=== PATIENT | female | born 1950 | race Caucasian/White ===

== ENCOUNTER 2020-03-03 08:08 | Inpatient (IN) ==
--- NOTE | 2020-02-16 14:31 | PAT Medication Instructions ---
Medication Instructions Date of Service February 16, 2020 Home Medications Bifidobacterium infantis [Align] 4 mg PO QAM ascorbic acid (vitamin C) [Vitamin C] 1,000 mg PO QAM calcium carbonate [Calcium 600] 600 mg PO QAM cholecalciferol (vitamin D3) [Vitamin D3] 25 mcg PO QAM cyanocobalamin (vitamin B-12) 2,500 mcg PO QAM loratadine [Claritin] 10 mg PO QAM multivit [id number] 186 [Hair, Skin and Nails Advanced] 1 tab PO TID multivitamin 1 tab PO QAM simvastatin 20 mg PO HS sumatriptan succinate 100 mg PO UD PRN triamcinolone acetonide [Nasacort] 2 spray INTRANASAL QAM DO NOT take the morning of surgery Bifidobacterium infantis [Align] 4 mg PO QAM ascorbic acid (vitamin C) [Vitamin C] 1,000 mg PO QAM calcium carbonate [Calcium 600] 600 mg PO QAM cholecalciferol (vitamin D3) [Vitamin D3] 25 mcg PO QAM cyanocobalamin (vitamin B-12) 2,500 mcg PO QAM loratadine [Claritin] 10 mg PO QAM multivit [id number] 186 [Hair, Skin and Nails Advanced] 1 tab PO TID multivitamin 1 tab PO QAM Take morning of surgery With a small sip of water, OTHERWISE NOTHING TO EAT OR DRINK AFTER MIDNIGHT: sumatriptan succinate 100 mg PO UD PRN (if needed) triamcinolone acetonide [Nasacort] 2 spray INTRANASAL QAM Take evening before surgery multivit [id number] 186 [Hair, Skin and Nails Advanced] 1 tab PO TID simvastatin 20 mg PO HS sumatriptan succinate 100 mg PO UD PRN (if needed) Other Notes If you have any questions please call us at [phone] or [phone] or [phone] or [phone]
--- NOTE | 2020-02-20 11:46 | Anesthesiology Consultation ---
Date of Service February 20, 2020 Assessment & Plan (1) Encounter for pre-operative examination: Per PAT assessment on 02/19: Travel screen- Travelled to [place], [place] to visit sister. Returned 02/18/20. DOS is more than 2 weeks after travel. + Mask + social distancing in public. No known COVID-19 positive contacts. No current COVID-19 related symptoms. Patient had COVID testing done 02/07 (prior to having thyroid biopsy) which was negative. Patient states she has not been told about having preop COVID testing arranged. Michaela at surgeon's office aware and states she will contact the patient for arranging. Awaiting results. Chart Review Chart Review: Acceptable Risk for Surgery (pending COVID test) and Patient seen in Pre Admission Testing Teaching & Discussion Pre-Anesthesia Teaching/Discussion Notes: Instructed NPO after midnight before surgery,except medications with 15 cc of water. Medication instructions provided according to the PAT guidelines. History Surgery Operation Date: 03/03/20 11:55 Proposed Procedures p Left Sacroiliac Joint Fusion - Patricio Snyder DO Height/Weight Height: 5 ft 1 in Weight: 60.3 kg Allergies Allergy/AdvReac Type Severity Reaction Status Date / Time oxcarbazepine Allergy Severe Hives Verified 02/12/20 08:13 rofecoxib [From Vioxx] Allergy Unknown Itching Verified 02/20/20 11:43 budesonide AdvReac Unknown Weight Verified 02/20/20 11:43 loss, thrush, fatigue hydrocodone AdvReac Unknown Vomiting Verified 02/12/20 08:14 tramadol AdvReac Unknown Vomiting Verified 02/12/20 08:14 Medications Home Medications Medication Instructions Recorded Confirmed Last Taken Bifidobacterium infantis [Align] 4 mg PO QAM 02/12/20 02/12/20 Unknown ascorbic acid (vitamin C) [Vitamin 1,000 mg PO QAM 02/12/20 02/12/20 Unknown C] calcium carbonate [Calcium 600] 600 mg PO QAM 02/12/20 02/12/20 Unknown cholecalciferol (vitamin D3) 25 mcg PO QAM 02/12/20 02/12/20 Unknown [Vitamin D3] cyanocobalamin (vitamin B-12) 2,500 mcg PO QAM 02/12/20 02/12/20 Unknown loratadine [Claritin] 10 mg PO QAM 02/12/20 02/12/20 Unknown multivit [id number] 186 1 tab PO TID 02/12/20 02/12/20 Unknown [Hair, Skin and Nails Advanced] multivitamin 1 tab PO QAM 02/12/20 02/12/20 Unknown simvastatin 20 mg PO HS 02/12/20 02/12/20 Unknown sumatriptan succinate 100 mg PO UD PRN 02/12/20 02/12/20 Unknown triamcinolone acetonide [Nasacort] 2 spray INTRANASAL QAM 02/12/20 02/12/20 Unknown Past Medical History Medical History CC (collagenous colitis) follows with [facility] Chronic back pain LLE radiculopathy GERD (gastroesophageal reflux disease) controlled Hyperlipidemia Migraine hx Thyroid nodule under surveillance with ultrasound/biopsy Exercise / Class Metabolic Activity II 4-5 Yardwork/Stairs/Walk up hill Past Family History Family History Sister Family history of diabetes mellitus Past Surgical History Surgical History H/O foot surgery LEFT LIGAMENT REPAIR History of carpal tunnel release R/L History of colonoscopy History of esophagogastroduodenoscopy (EGD) Past Anesthesia History No Hx of Anesthesia Complications (except PONV x1 episode) and No Family Hx of Anesthesia Complications History of PONV No Hx of Motion Sickness and History of PONV (with [facility]) Social History Smoking Status: Never smoker Do You Dip or Chew Tobacco: No Hx Alcohol Use: No Hx Substance Use: No Review of Systems Controlled reflux. Patient denies chest pain, shortness of breath, dyspnea on exertion, cough, wheezing, palpitations. Physical Exam Vital Signs VITALS BP 131/76 P 74 TEMP 98.6 SP02 98%RA RESP 16 PHYSICAL Full neck and c-spine range of motion. Full TMJ range of motion. TMD 3 finger breaths Mallampati Score 3 Dentition: intact, + crowns on sides Lungs: clear throughout to auscultation Cardiac: regular rate and rhythm, no murmurs noted Spine: normal Carotid arteries: negative bruit Extremities: no edema Testing Laboratory Results 02/20/20 12:01 02/20/20 12:01 PT 10.8 Seconds (9.0-12.0) 02/20/20 12: INR 1.0 (0.9-1.1) 02/20/20 12: APTT 29.7 Seconds (21.0-31.0) 02/20/20 12:01 Urine Color Dark Yellow 02/20/20 Unknown Urine Appearance Clear (Clear) 02/20/20 Unknown Urine pH 6.5 (4.5-7.5) 02/20/20 Unknown Ur Specific [place] 1.020 (1.000-1.030) 02/20/20 Unknown Urine Protein Negative (Negative) 02/20/20 Unknown Urine Glucose (UA) Negative (Negative) 02/20/20 Unknown Urine Ketones Negative (Negative) 02/20/20 Unknown Urine Nitrite Negative (Negative) 02/20/20 Unknown Ur Leukocyte Esterase Negative (Negative) 02/20/20 Unknown Blood Type A Positive 02/20/20 12: Antibody Screen NEGATIVE 02/20/20 12:01 Electrocardiogram Date: 02/20/20 NSR at 64bpm. LAD. Low voltage QRS. Possible inferior infarct, age undetermined. unconfirmed report. Chest X-Ray Date: 02/20/20 FINDINGS: The lungs are clear. The heart is normal in size. No pleural effusions. No pneumothorax. Mild biapical pleural calcifications. The lungs are hyperexpanded with mild apical predominant emphysematous changes. Mild degenerative changes within the thoracic spine. IMPRESSION: No acute process within the chest. Mild emphysema.
[2020-02-20 12:19] LABS: Basophils # (auto) 0.06 K/uL (0-0.2); Eosinophils # (auto) 0.04 K/uL (0-0.5); Eosinophils % (auto) 0.7 %; Hematocrit (blood only) 44.4 % (37-47); Hemoglobin 14.8 g/dL (12.0-16.0); Immature Granulocytes # (auto) 0.02 K/uL (0.00-0.02); Immature Granulocytes % (auto) 0.3 %; Lymphocytes % (auto) 27.2 %; Mean Corpuscular Hemoglobin 30.8 pg (25-34); Mean Corpuscular Hgb Conc 33.3 g/dL (32-36); Mean Corpuscular Volume 92.3 fL (80-100); Mean Platelet Volume 9.8 fL (7.4-10.4); Monocytes % (auto) 10.2 %; Neutrophils # (auto) 3.57 K/uL (1.4-6.5); Neutrophils % (auto) 60.6 %; Platelet Count 279 K/uL (130-400); RDW Coefficient of Variation 13.3 % (11.5-14.5); RDW Standard Deviation 45.1 fL (36.4-46.3); Red Blood Count 4.81 M/uL (4.2-5.4); White Blood Count 5.89 K/uL (4.8-10.8)
[2020-02-20 12:22] LABS: Appearance Urine Clear (Clear); Bilirubin Urine Negative (Negative); Blood Urine Negative (Negative); Color Urine Dark Yellow; Glucose Urine UA Negative (Negative); Ketones Urine Negative (Negative); Leukocyte Esterase Urine Negative (Negative); Nitrite Urine Negative (Negative); Protein Urine Negative (Negative); Urobilinogen Urine Negative (Negative); pH Urine 6.5 (4.5-7.5)
[2020-02-20 12:29] LABS: Partial Thromboplastin Ratio 1.1; Partial Thromboplastin Time 29.7 Seconds (21.0-31.0); Prothrombin Time 10.8 Seconds (9.0-12.0)
[2020-02-20 12:30] LABS: BUN Creatinine Ratio 31.1 (10-20); Calcium 9.8 mg/dl (8.5-10.1); Creatinine Clr Calc Pharmacy 53.1 ml/min; Est GFR (African American) 84.7; Est GFR (Non-African American) 73.1; Potassium 4.3 mmol/L (3.5-5.1)
--- NOTE | 2020-02-20 12:37 | XRay Report ---
XR chest Pre-admission PA/Lat HISTORY: Preop. COMPARISON: None. FINDINGS: The lungs are clear. The heart is normal in size. No pleural effusions. No pneumothorax. Mi ld biapical pleural calcifications. The lungs are hyperexpanded with mild apical predominant emphysem atous changes. Mild degenerative changes within the thoracic spine. IMPRESSION: 1. No acute process within the chest. 2. Mild emphysema. ACT 112: Negative or not required by law. Electronically signed by: Zac Frances M.D. 02/20/2020 12:36 PM
--- NOTE | 2020-02-21 07:01 | Electrocardiogram Report ---
Test Reason : Blood Pressure : / mmHG Vent. Rate : 064 BPM Atrial Rate : 064 BPM P-R Int : 162 ms QRS Dur : 080 ms QT Int : 396 ms P-R-T Axes : 078 -66 080 degrees QTc Int : 408 ms Normal sinus rhythm Left axis deviation Low voltage QRS Possible Inferior infarct , age undetermined Abnormal ECG No previous ECGs available Confirmed by Darian Myers ([id number]) on 02/20/2020 10:00:43 PM Referred By: Patricio Snyder Confirmed By:Darian Myers
[~2020-03-03 08:08] MED LIST: ACETAMINOPHEN 500 MG TAB PO SCH; CEFAZOLIN 1000MG 1,000 MG/7.5 ML SYR IV SCH; GABAPENTIN 300 MG CAP PO SCH; LR 15ML/HR IV SCH
--- NOTE | 2020-03-03 09:41 | History & Physical Bridge Note ---
Date of Service March 03, 2020 History & Physical Bridge Note I have examined the patient, reviewed the History & Physical and in the interval since the performance of the History & Physical I have noted the following changes of clinical significance: no changes noted
--- NOTE | 2020-03-03 09:42 | History & Physical Report ---
Date of Service March 03, 2020 Assessment & Plan (1) Sacroiliitis: Left sacroiliac joint fusion Present on Admission?: Yes History of Present Illness Chief Complaint: Sacroiliitis Primary Care Provider: Patricio Soto This is a 69-year-old female that presents with chronic persistent left SI joint pain is here for surgical intervention. Allergies Allergy/AdvReac Type Severity Reaction Status Date / Time oxcarbazepine Allergy Severe Hives Verified 03/03/20 08:25 rofecoxib [From Vioxx] Allergy Unknown Itching Verified 03/03/20 08:25 budesonide AdvReac Unknown Weight Verified 03/03/20 08:25 loss, thrush, fatigue hydrocodone AdvReac Unknown Vomiting Verified 03/03/20 08:25 tramadol AdvReac Unknown Vomiting Verified 03/03/20 08:25 Home Medications Home Medications Medication Instructions Recorded Confirmed Type Bifidobacterium infantis [Align] 4 mg PO QAM 02/12/20 03/03/20 History ascorbic acid (vitamin C) [Vitamin 1,000 mg PO QAM 02/12/20 03/03/20 History C] calcium carbonate [Calcium 600] 600 mg PO QAM 02/12/20 03/03/20 History cholecalciferol (vitamin D3) 25 mcg PO QAM 02/12/20 03/03/20 History [Vitamin D3] cyanocobalamin (vitamin B-12) 2,500 mcg PO QAM 02/12/20 03/03/20 History loratadine [Claritin] 10 mg PO QAM 02/12/20 03/03/20 History multivit [id number]-herb 186 1 tab PO TID 02/12/20 03/03/20 History [Hair, Skin and Nails Advanced] multivitamin 1 tab PO QAM 02/12/20 03/03/20 History simvastatin 20 mg PO HS 02/12/20 03/03/20 History sumatriptan succinate 100 mg PO UD PRN 02/12/20 03/03/20 History triamcinolone acetonide [Nasacort] 2 spray INTRANASAL QAM 02/12/20 03/03/20 History Past Med/Surg History Medical History CC (collagenous colitis) follows [facility] Chronic back pain LLE radiculopathy GERD (gastroesophageal reflux disease) controlled Hyperlipidemia Migraine hx Thyroid nodule under surveillance with ultrasound/biopsy Surgical History H/O foot surgery LEFT LIGAMENT REPAIR History of carpal tunnel release R/L History of colonoscopy History of esophagogastroduodenoscopy (EGD) Family History Sister Family history of diabetes mellitus Social History Preferred Language: [place] Communication Ability: Effective Veneer Layer Required: No Beliefs That Will Affect Care: None Current Living Situation: Spouse Other Information That Helps Us Care for You: No Feels Safe at Home: Yes Safety Concerns: Feels Safe At This Time Smoking Status: Never smoker Do You Dip or Chew Tobacco: No ; Second Hand Exposure: No ; Hx Alcohol Use: No Hx Substance Use: No Physical Exam Physical Exam: Patient is alert and oriented neurologically intact. Heart regular rate and rhythm. Lungs clear to auscultation. Results & Data Vital Signs (Past 12 Hours) Vital Signs Temp Pulse Resp BP Pulse Ox 03/03/20 08:29 36.6 C 70 18 160/82 H 95
[2020-03-03] MEDS ORDERED: SCOPOLAMINE 1.5 MG TDSY TD ONE (09:44)
[2020-03-03] MEDS ORDERED: ONDANSETRON INJ 2 MG/ML 2 ML VIAL IV PRN (09:44)
[2020-03-03] MEDS ORDERED: ePHEDrine sulfate 50 MG/ML AMP IV PRN (09:44)
[2020-03-03] MEDS ORDERED: ATROPINE SULFATE 0.1 MG/ML 10ML SYR IV PRN (09:44)
[2020-03-03] MEDS ORDERED: SCOPOLAMINE 1.5 MG TDSY TD SCH (09:45)
[2020-03-03] MEDS ORDERED: BACITRACIN INJ 50,000 UNIT VIAL ONE (09:46)
[2020-03-03] MEDS ORDERED: BUPIVACAINE/EPINEPHRINE 0.25% 1:200,000 30 ML VIAL ONE (09:46)
[2020-03-03] MEDS ORDERED: ONDANSETRON INJ 2 MG/ML 2 ML VIAL ONE (09:50)
[2020-03-03] MEDS ORDERED: PROPOFOL IV EMULSION 10 MG/ML 20 ML VIAL IV ONE (09:50)
[2020-03-03] MEDS ORDERED: MIDAZOLAM HCL 1 MG/ML 2ML VIAL ONE (09:50)
[2020-03-03] MEDS ORDERED: fentaNYL citrate 100 MCG/2 ML VIAL ONE (09:50)
[2020-03-03] MEDS ORDERED: ROCURONIUM BROMIDE 10 MG/ML 5 ML VIAL IV ONE ×2 (09:50→12:10)
[2020-03-03] MEDS ORDERED: LIDOCAINE HCL 2% 2 ML VIAL/AMP(20MG/ML) INFIL ONE (09:50)
--- NOTE | 2020-03-03 11:04 | Fluoroscopy Report ---
FL sacrum CLINICAL HISTORY: LEFT SI JOINT FUSION COMPARISON STUDY: FLUOROSCOPY TIME: 87 seconds. NUMBER OF FLUOROSCOPIC IMAGES: 3 FINDINGS: 3 intraoperative fluoroscopic spot images reveal 3 cannulated screws traversing the left SI joint. IMPRESSION: Intraoperative fluoroscopic spot images demonstrating 3 cannulated screws traversing the left SI joint. ACT 112: Negative or not required by law. Electronically signed by: Jeff Camacho M.D. 03/03/2020 11:02 AM
--- NOTE | 2020-03-03 11:07 | Operative Report ---
Post Operative Report Pre & Post Diagnosis Operation Date: 03/03/20 09:55 Pre-Op Diagnosis: SI Joint Dysfunction Post-Op Diagnosis: SI Joint Dysfunction I identified the patient and participated in the time-out.: Yes Procedure Operation Date: 03/03/20 09:55 Actual Procedures #1 open left SI joint fusion. #2 placement of 5 cc of cement and infuse chidi agen sponge within the left SI joint. #3 placement of 3 globus percutaneous SI joint screws across the left SI joint. Surgeon Patricio Snyder, Elevator Worker Luna Escalante Estimated Blood Loss 10 Findings Consistent with Post-Op Diagnosis Specimens None Indications This is a 69-year-old female who presents with above-mentioned diagnosis after failing course of nonoperative care and having continued pain she is here for the above-mentioned procedure. Description of Procedure Patient was met with identified informed consent obtained. Patient was then taken to the operative suite underwent intubation placed in a prone position on the Tab table with chest padded bolsters. The left upper buttock was prepped and draped in sterile fashion. The assistance of fluoroscopy identified the left SI joint and a 3 cm incision was placed directly overlying this region. Sharp dissection was performed down to and exposing the joint. I then curetted out the joint and placed infuse collagen sponge and 5 cc of all cement directly in the joint. It was tamped into position. I then created a second incision along the left upper buttock in line with the posterior slope with a sacrum. Approximately 3 cm in size. A guidewire was then placed per cutaneously across the proximal portion of the left SI joint. I verified position in AP lateral inlet outlet and lateral views. Once we were satisfied with position of the K wire cannulas were replaced over the K wire and ultimately I drilled across the K wire with a 10 mm fluted drill. I then placed a 50 mm BARAJAS-coated slotted screw filled with infuse collagen sponge and local autograft across the SI joint. Using an outrigger guide a second guidewire was placed in a similar fashion. This screw was also placed the screw 45 mm in length BARAJAS-coated slotted and filled with infuse collagen sponge and local autograft. A third screw was also placed in a similar fashion. The screw was 35 mm in length BARAJAS-coated slotted and filled with infuse collagen sponge and local autograft. All screws demonstrated excellent alignment and purchase. The incision was then copiously irrigated and closed with subcutaneous Vicryl and 4 Monocryl for final skin closure. Steri-Strip sterile dressings placed. Patient will continue PACU stable condition. Please note Luna Escalante was present at the entire procedure involved the patient positioning complex portions of the surgery and final skin closure. I attest to the content of the Intraoperative Record and any orders documented therein. Any exceptions are noted below.
[2020-03-03] MEDS: fentaNYL citrate 100 MCG/2 ML VIAL IV PRN ×4 (11:25→11:45)
[2020-03-03] MEDS ORDERED: PROMETHAZINE HCL 12.5 MG in SODIUM CHLORIDE 0.9% 50 ML IV ONE (13:00)
--- NOTE | 2020-03-03 13:54 | Anesthesiology Progress Note ---
Date of Service March 03, 2020 Anesthesia Post Procedure Vital Signs Vital Signs: Temp Pulse Pulse Pulse Resp BP BP 03/03/20 13:10 36.6 C 64 16 151/65 H 03/03/20 12:40 67 14 158/84 H 03/03/20 12:10 36.9 C 85 18 144/65 H 03/03/20 12:05 36.6 C 62 14 138/57 L 03/03/20 11:55 76 15 137/69 03/03/20 11:45 75 12 145/71 H 03/03/20 11:35 65 12 136/67 03/03/20 11:25 74 13 140/70 03/03/20 11:15 36.2 C L 103 H 15 151/72 H 03/03/20 08:29 36.6 C 70 18 160/82 H Pulse Ox 03/03/20 13:10 92 03/03/20 12:40 92 03/03/20 12:10 98 03/03/20 12:05 98 03/03/20 11:55 97 03/03/20 11:45 100 03/03/20 11:35 100 03/03/20 11:25 100 03/03/20 11:15 100 03/03/20 08:29 95 Pain Intensity Left Hip: Pain Intensity: 7 Transfer of Care Handoff Completed per policy Notes Mental Status: alert / awake / arousable and participated in evaluation Patient Amnestic to Procedure: Yes Nausea / Vomiting: improving with treatment Pain: adequately controlled Airway Patency, RR, SpO2: stable & adequate BP & HR: stable & adequate Hydration State: stable & adequate Anesthetic Complications: no major complications apparent and Pt Satisfied with anesthetic care
[2020-03-03] MEDS ORDERED: OXYCODONE HCL IR 5 MG TAB (IMMEDIATE RELEASE) PO PRN ×2 (14:20)
[2020-03-03] MEDS ORDERED: HYDROmorphone INJ 0.5 MG/0.5 ML SYR IV PRN ×2 (14:20)
[2020-03-03] MEDS ORDERED: CHECK SCOPOLAMINE PATCH PLACEMENT SCH (16:00)
== END 2020-03-03 15:05 | disposition home or self-care (01) | DRG 460 ==
LOC: ASU 08:08 → 3N 09:00 → ASU 15:05